=== PATIENT | female | born 1935 | race Two or more races ===

== ENCOUNTER 2018-01-21 19:26 | Inpatient (IN) | payer SELFPAY ==
[~2018-01-21] VITALS: Ht 152.4 cm; Wt 72.3 kg
[2018-01-21] MEDS ORDERED: cloNIDine HCL 0.1 MG TAB ONE (19:48)
[2018-01-21] MEDS ORDERED: cloNIDine HCL 0.1 MG TAB PO ONE (20:00)
[2018-01-21 20:34] LABS: Basophils # (auto) 0.1 uL; Eosinophils # (auto) 0.1 uL; Lymphocytes # (auto) 1.3 uL; White Blood Cell 6.7 10^3/uL (4.4-10.8)
[2018-01-21 20:36] LABS: Eosinophils % (auto) 1.1 % (0.0-7.0); Hematocrit 25.3 % (36.0-46.0); Mean Corpuscular Hemoglobin 22.5 pg (28.0-32.0); Mean Corpuscular Hgb Conc. 31.5 g/dL (32.0-36.0); Mean Corpuscular Volume 71.5 fL (80.0-100.0); Monocytes # (auto) 0.3 uL; Monocytes % (auto) 5.1 % (0.0-12.0); Neutrophils # (auto) 4.9 uL; Neutrophils % (auto) 72.8 % (37.0-80.0); Platelet Count (auto) 362 10^3/uL (140-450); Red Blood Cells 3.54 10^6/uL (4.0-5.20)
[2018-01-21 20:40] LABS: Red Cell Distribution Width 23.1 % (11.8-14.3)
[2018-01-21 20:52] LABS: Urine Bacteria FEW /hpf (None Seen); Urine Blood 1+ /uL (Negative); Urine Specific Gravity 1.007 (1.001-1.035); Urine WBC 2 /hpf (0 - 5)
[2018-01-21 20:57] LABS: Albumin 3.2 g/dL (3.4-5.0); BUN/Creatinine Ratio 14.3; Bilirubin, Total 0.3 mg/dL (0.2-1.0); Calcium 8.9 mg/dL (8.5-10.1); Magnesium 2.6 mg/dL (1.6-2.6); Potassium 4.6 mmol/L (3.5-5.1); Total Protein 7.7 g/dL (6.4-8.2)
[2018-01-22 00:30] LABS: Amylase 59 U/L (25-115); Lipase 218 U/L (73-393)
[2018-01-22] MEDS ORDERED: METOPROLOL TARTRATE 50 MG TAB PO ONE (05:00)
[2018-01-22] MEDS ORDERED: ALBUTEROL SULF 2.5 MG/0.5ML(0.5%) NEB SOLN NEB PRN (05:45)
[2018-01-22] MEDS ORDERED: FUROSEMIDE 40 MG/4 ML VIAL IV ONE (05:45)
[2018-01-22] MEDS ORDERED: MORPHINE SULFATE 8mg/ml INJ SDV IV PRN (05:45)
[2018-01-22] MEDS ORDERED: ACETAMINOPHEN 325 MG TAB PO PRN (05:45)
[2018-01-22] MEDS ORDERED: TEMAZEPAM 15 MG CAP PO PRN (05:45)
[2018-01-22] MEDS ORDERED: DEXTROSE (50%) 50ML SYRG IV PRN (05:45)
[2018-01-22] MEDS ORDERED: NITROGLYCERIN 0.4 MG SL TAB SL PRN (05:45)
[2018-01-22] MEDS ORDERED: ONDANSETRON HCL 4 MG/2 ML VIAL IV PRN (05:45)
[2018-01-22] MEDS ORDERED: HYDROcodone-ACET 5/325MG TAB PO PRN (05:45)
[2018-01-22] MEDS: ACCU-CHEK COMFORT CURVE STRIP VI SCH ×3 (06:00→17:30)
[2018-01-22 07:00] LABS: Calcium 8.9 mg/dL (8.5-10.1); Potassium 4.6 mmol/L (3.5-5.1)
[2018-01-22 07:02] LABS: BUN/Creatinine Ratio 13.8
[2018-01-22 07:05] LABS: Bilirubin, Total 0.4 mg/dL (0.2-1.0); Total Protein 7.5 g/dL (6.4-8.2)
[2018-01-22] MEDS: InsuLIN REG 1unit/0.01ml Soln (100units/ml) SC SCH ×3 (07:06→18:17)
[2018-01-22] MEDS: cefTRIAXone 1GM/10ml IVPUSH 10 ML IV SCH ×2 (07:06→09:19)
[2018-01-22 07:23] VITALS: BP 108/68
[2018-01-22] MEDS: cloNIDine HCL 0.1 MG TAB PO PRN (09:19)
[2018-01-22] MEDS: PANTOPRAZOLE 40 MG TAB PO SCH (09:20)
[2018-01-22] MEDS ORDERED: FUROSEMIDE 40 MG TAB PO SCH (10:00)
[2018-01-22 12:09] VITALS: BP 152/69
[2018-01-22] MEDS ORDERED: fentaNYL CITRATE 100 MCG/2 ML VL ONE (14:32)
[2018-01-22] MEDS ORDERED: MIDAZOLAM HCL 1MG/1ML-2 ML VIAL ONE (14:32)
[2018-01-22 14:47] LABS: INR 1.02 (0.9-1.15); Prothrombin Time 10.9 sec (9.27-12.13)
[2018-01-22] MEDS ORDERED: LIDOCAINE 2%HCL (LOCAL ANESTH.) INJ 20ML MDV ONE ×2 (14:59→15:16)
[2018-01-22] MEDS ORDERED: hydrALAZINE HCL 20 MG/ML VL IV PRN (15:30)
[2018-01-22 16:10] VITALS: BP 138/75
[2018-01-22] MEDS: SODIUM CHLORIDE 0.9% 1,000 ML IV SCH (16:30)
[2018-01-22 20:00] VITALS: BP 158/88
[2018-01-22 21:30] VITALS: BP 158/80
[2018-01-23] VITALS (7 sets, daily range): BP systolic 132–186; BP diastolic 66–88
[2018-01-23] MEDS: ACCU-CHEK COMFORT CURVE STRIP VI SCH ×3 (00:20→23:45)
[2018-01-23] MEDS: InsuLIN REG 1unit/0.01ml Soln (100units/ml) SC SCH ×3 (00:21→22:00)
[2018-01-23] MEDS: SODIUM CHLORIDE 0.9% 1,000 ML IV SCH (04:50)
[2018-01-23 05:50] LABS: % Iron Saturation 11.9 % (15-50)
[2018-01-23 05:58] LABS: Potassium 3.5 mmol/L (3.5-5.1)
[2018-01-23 06:02] LABS: Basophils # (auto) 0.1 uL; Eosinophils # (auto) 0.3 uL; Hematocrit 23.2 % (36.0-46.0); Hemoglobin 7.5 g/dL (12.2-16.2); Lymphocytes # (auto) 1.3 uL; Lymphocytes % (auto) 24.3 % (10.0-50.0); Neutrophils # (auto) 3.3 uL; White Blood Cell 5.3 10^3/uL (4.4-10.8)
[2018-01-23 06:04] LABS: Basophils % (auto) 1.1 % (0.0-2.0); Eosinophils % (auto) 6.4 % (0.0-7.0); Mean Corpuscular Hgb Conc. 32.4 g/dL (32.0-36.0); Monocytes # (auto) 0.3 uL; Monocytes % (auto) 6.4 % (0.0-12.0); Neutrophils % (auto) 61.8 % (37.0-80.0); Platelet Count (auto) 311 10^3/uL (140-450); Red Blood Cells 3.26 10^6/uL (4.0-5.20)
[2018-01-23 06:05] LABS: Albumin 2.6 g/dL (3.4-5.0); BUN/Creatinine Ratio 16.7; Bilirubin, Total 0.3 mg/dL (0.2-1.0); Calcium 8.4 mg/dL (8.5-10.1); Total Protein 6.5 g/dL (6.4-8.2)
[2018-01-23 06:17] LABS: Red Cell Distribution Width 22.5 % (11.8-14.3)
[2018-01-23] MEDS: cloNIDine HCL 0.1 MG TAB PO PRN (07:43)
[2018-01-23] MEDS: PANTOPRAZOLE 40 MG TAB PO SCH (09:46)
[2018-01-23] MEDS: amLODIPine BESYLATE 5 MG TAB PO SCH (09:47)
[2018-01-23] MEDS ORDERED: amLODIPine BESYLATE 5 MG TAB PO SCH (10:00)
[2018-01-23] MEDS: SOD CHL 0.45% 1,000 ML IV SCH ×2 (10:25→23:46)
[2018-01-23] MEDS ORDERED: SODIUM FERR GLUC 62.5MG/5ML 125 MG in SODIUM CHL 0.9% 100 ML IV SCH (12:00)
[2018-01-24 05:16] VITALS: BP 152/79
[2018-01-24 06:30] LABS: Hematocrit 25.9 % (36.0-46.0); Hemoglobin 8.5 g/dL (12.2-16.2)
[2018-01-24 06:48] LABS: BUN/Creatinine Ratio 19.7
[2018-01-24] MEDS: SOD CHL 0.45% 1,000 ML IV SCH (06:50)
[2018-01-24 07:03] LABS: Potassium 2.8 mmol/L (3.5-5.1)
[2018-01-24 09:00] VITALS: BP 150/87
[2018-01-24] MEDS ORDERED: POTASSIUM CHL 20 Meq TABLET PO ONE (11:00)
[2018-01-24] MEDS ORDERED: SOD CHL 0.45% WITH 20MEQ KCL 1,000 ML IV SCH (11:00)
[2018-01-24] MEDS: amLODIPine BESYLATE 5 MG TAB PO SCH (11:02)
[2018-01-24] MEDS: PANTOPRAZOLE 40 MG TAB PO SCH (11:02)
[2018-01-24] MEDS: ACCU-CHEK COMFORT CURVE STRIP VI SCH (11:03)
[2018-01-24] MEDS: InsuLIN REG 1unit/0.01ml Soln (100units/ml) SC SCH (11:03)
[2018-01-24] MEDS ORDERED: POTASSIUM CHL 10% (20 MEQ/15ML) 15ml ORAL SOLN GT ONE (11:15)
[2018-01-24 12:20] VITALS: BP 125/66
[2018-01-24 13:45] VITALS: BP 150/87
[2018-01-24 16:40] VITALS: BP 134/61
== END 2018-01-24 16:36 | disposition home or self-care (01) | DRG 699 ==
LOC: ER 19:26 → TELE 19:27 → TELE-EAST 01-22 08:16 → EAST 01-22 15:51
PROVIDERS: ADMIT Nurse Practitioner; ATTEND Internal Medicine
PROC: 0T9B30Z Drainage of Bladder with Drainage Device, Percutaneous Approach (ICD-10-PCS; principal; 2018-01-22)
DX: N32.0 Bladder-neck obstruction (principal); N17.9 Acute kidney failure, unspecified; E46 Unspecified protein-calorie malnutrition; N13.30 Unspecified hydronephrosis; I11.0 Hypertensive heart disease with heart failure; K76.0 Fatty (change of) liver, not elsewhere classified; D25.9 Leiomyoma of uterus, unspecified; D50.9 Iron deficiency anemia, unspecified; I50.9 Heart failure, unspecified; R19.09 Other intra-abdominal and pelvic swelling, mass and lump; G47.00 Insomnia, unspecified; E11.65 Type 2 diabetes mellitus with hyperglycemia; Z68.31 Body mass index [BMI] 31.0-31.9, adult; Z83.3 Family history of diabetes mellitus
CPT/HCPCS: 10022; 36415; 71045; 72192; 74176; 77012; 80048; 80053; 81001; 82150; 82962; 83036; 83540; 83550; 83690; 83735; 83880; 84484; 85014; 85018; 85025; 85379; 85610; 86304; 86850; 86900; 86901; 93005; 93306; 94640; 96374; A4223; C1729; J1815; J2250